=== PATIENT | male | born 1980 | race Caucasian/White ===

== ENCOUNTER 2016-12-25 11:45 | Emergency (ER) | payer MEDICARE ==
[~2016-12-25] VITALS: Ht 172.7 cm; Wt 99.8 kg
--- NOTE | ~2016-12-25 | CR219 ---
[facility] A Service [facility] RADIOLOGY TEXT RESULTS PATIENT: MAGDALENO FIGUEROA LOCATION: [facility] : 84 UNIT #: [id number] AGE: [address]: Pam Bucio APRN SEX: M ORDER DR: [id number] [facility] [address] [place], [place] [address] [id number] MR#: [id number] Acc #: [id number] NAME: MAGDALENO FIGUEROA. : 1980 SEX: M STUDY DATE/TIME: 12/25/2016 13:10 UNIT: [facility] ROOM: STUDY DESCRIPTION: CR Sacrum and Coccyx Min 2 Vie Attending Physician: Pam Bucio A.P.R.N. Ordering Physician: Ed Doctor [id number] [facility] Primary Care Physician: Cande Stanley M.D. MEDICAL IMAGING REPORT This report is preliminary unless electronic signature is present REVISED REPORT SEE ADDENDUM EXAM Sacrum and coccyx, minimum 2 views HISTORY Pain in tailbone for a month. Patient fell in retirement. TECHNIQUE 3 views of the sacrum and coccyx are submitted for review. COMPARISON STUDIES No previous. FINDINGS There is no displaced fracture appreciated, sacrum or coccyx. Please be aware that the distal tip of the coccyx is not on the lateral view and consider repeating the lateral view to include it. IMPRESSION 1. No displaced fracture is appreciated sacrum or coccyx. The lateral view does not include the distal end of the coccyx and consider repeating the lateral. Dictated by... Sushila Solares M.D. THIS IS AN ELECTRONICALLY VERIFIED REPORT [facility] A Service [facility] RADIOLOGY TEXT RESULTS PATIENT: MAGDALENO FIGUEROA LOCATION: [facility] : 84 UNIT #: [id number] AGE: [address]: Pam Bucio APRN SEX: M ORDER DR: Sushila Solares M.D. at 12/25/2016 11:32 PM SAC/pcl TD: 12/25/2016 17:00 JOB #: [id number] ADDENDUM Additional view sacrum: Additional lateral view has been obtained which includes the coccyx. Again, there is no displaced fracture suspected of the sacrum or coccyx. Please refer to the original report, as well. JOB #: [id number] Dictated by... Sushila Solares M.D. THIS IS AN ELECTRONICALLY VERIFIED REPORT Sushila Solares M.D. at 12/26/2016 2:45 PM SAC/psc TD: 12/25/2016 20:23 JOB #: [id number] MEDICAL IMAGING REPORT Page 1 of 1 COPY
[~2016-12-25 11:45] MED LIST: NO MEDICATIONS; ORUDIS75 M1 PO; RISPERIDONE; TRAZODONE
== END 2016-12-25 15:20 | disposition home or self-care (01) ==
LOC: CFTX 11:45 → CED 11:45 → CFTX 13:21
DX: S30.0XXA Contusion of lower back and pelvis, initial encounter (principal); F31.9 Bipolar disorder, unspecified; F17.210 Nicotine dependence, cigarettes, uncomplicated; Z88.8 Allergy status to other drugs, medicaments and biological substances; W18.30XA Fall on same level, unspecified, initial encounter
CPT/HCPCS: 72220; 99283